=== PATIENT | male | born 1970 | race Caucasian/White ===

== ENCOUNTER 2020-03-17 10:18 | Emergency (ER) | payer BC, OTHER ==
[~2020-03-17] VITALS: Ht 177.8 cm; Wt 131.0 kg
--- NOTE | 2020-03-17 10:56 | ED General ---
General Chief Complaint: Dizziness/Syncope Stated Complaint: DIZZINESS Nursing Triage Note: Patient presents to the ED with c/o sudden onset of dizziness, nausea, diaphoresis. He reports that he was lying in bed and when he went to stand up he became very hot and sweaty and felt as though he was going to throw up. He states that this feeling lasted approximately 1 hour. Upon arrival patient denies dizziness and states his nausea and flushed feeling have improved. Nursing Sepsis Screen: No Definite Risk History of Present Illness Date Seen by Provider: Mar 17, 2020 Time Seen by Provider: 10:45 Initial Comments Patient is a 49-year-old male who presents to the emergency department today with a chief complaint of feeling very dizzy and off balance. 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 Patient states that he got into a lukewarm shower to try and cool off, when he came out of the shower he was still continuing to be diaphoretic. Patient states it continues to happen in waves. The flushed feeling and nauseous feeling have subsided somewhat. He continues to have waves of dizziness as he sits on the stretcher. He denies any complaints of chest pain, shortness of breath, abdominal pain. He denies any problems with bowel or bladder. He states yesterday while he was working he had a little pain to the right lower rib cage but that has also subsided. All other review of systems reviewed and negative except as stated. Timing/Duration: 1-3 Hours Severity: Severe Modifying Factors: improves with Rest Associated Systoms: Diaphoresis, Nausea/Vomiting Allergies and Home Medications Allergies Coded Allergies: No Known Drug Allergies (Unverified , 03/17/20) Home Medications Meclizine HCl 25 Mg Tablet, 25 MG PO Q6H PRN for dizziness Prescribed by: MANPREET OCASIO on 03/17/20 1148 Ondansetron 4 Mg Tab.rapdis, 4 MG PO Q8H PRN for nausea Prescribed by: MANPREET OCASIO on 03/17/20 1148 Patient Home Medication List Home Medication List Reviewed: Yes Review of Systems Review of Systems Constitutional: see HPI, diaphoresis EENTM: no symptoms reported Respiratory: no symptoms reported Gastrointestinal: nausea Genitourinary: no symptoms reported Musculoskeletal: no symptoms reported Skin: no symptoms reported Psychiatric/Neurological: Denies Headache, Denies Numbness, Denies Paresthesia, Denies Tingling, Denies Tremors, Denies Weakness All Other Systems Reviewed Negative Unless Noted: Yes Past Posoduu-Wtnvth-Hqivih Hx Patient Social History Alcohol Use: Rarely Uses Recreational Drug Use: No Smoking Status: Never a Smoker 2nd Hand Smoke Exposure: No Recent Foreign Travel: No Contact w/Someone Who Travel: No Recent Infectious Disease Expo: No Recent Hopitalizations: No Physical Abuse: No Sexual Abuse: No Mistreated: No Fear: No Seasonal Allergies Seasonal Allergies: No Past Medical History Surgeries: Yes (Right 4th finger replantation) Respiratory: Yes Pneumonia Cardiac: Yes Hypertension Neurological: No Genitourinary: No Gastrointestinal: No Musculoskeletal: No Endocrine: No HEENT: No Cancer: No Psychosocial: No Integumentary: No Blood Disorders: No Physical Exam Vital Signs Vital Signs - First Documented 03/17/20 10:18 Temp 36.8 Pulse 63 Resp 22 B/P (MAP) 180/100 (126) Pulse Ox 96 O2 Delivery Room Air Capillary Refill : Less Than 3 Seconds Height, Weight, BMI Height: '" Weight: lbs. oz. kg; 41.00 BMI Method: General Appearance: No Apparent Distress, WD/WN Eyes: Bilateral Eye Normal Inspection, Bilateral Eye PERRL, Bilateral Eye EOMI HEENT: PERRL/EOMI, TMs Normal (Right TM partially occluded by cerumen), Normal ENT Inspection Neck: Full Range of Motion Respiratory: Lungs Clear, Normal Breath Sounds, No Accessory Muscle Use, No Respiratory Distress Cardiovascular: Regular Rate, Rhythm Gastrointestinal: Normal Bowel Sounds Back: Normal Inspection Extremity: Normal Inspection, Normal Range of Motion, Non Tender Neurologic/Psychiatric: Alert, Oriented x3, No Motor/Sensory Deficits, Normal 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/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, 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 Norm as Tested; No Abnormal Cerebellar Tests, No Disoriented, No EOM Palsy, No Facial Droop, No Motor Weakness, No Sensory Deficit Skin: Normal Color, Warm/Dry Progress/Results/Core Measures Suspected Sepsis Recent Fever Within 48 Hours: No Infection Criteria Present: None New/Unexplained Altered Menta: No Sepsis Screen: No Definite Risk SIRS Temperature: Pulse: 63 Respiratory Rate: 22 Laboratory Tests 12/4/20 10:28: White Blood Count 6.6 Blood Pressure 180 /100 Mean: 126 Laboratory Tests 03/17/20 10:28: Creatinine 1.00, Platelet Count 316 Results/Orders Lab Results Laboratory Tests Test 03/17/20 10:28 Range/Units White Blood Count 6.6 4.3-11.0 10^3/uL Red Blood Count 5.44 4.35-5.85 10^6/uL Hemoglobin 15.3 13.3-17.7 G/DL Hematocrit 46 40-54 % Mean Corpuscular Volume 84 80-99 FL Mean Corpuscular Hemoglobin 28 25-34 PG Mean Corpuscular Hemoglobin Concent 33 32-36 G/DL Red Cell Distribution Width 13.3 10.0-14.5 % Platelet Count 316 130-400 10^3/uL Mean Platelet Volume 11.1 H 7.4-10.4 FL Immature Granulocyte % (Auto) 1 % Neutrophils (%) (Auto) 53 42-75 % Lymphocytes (%) (Auto) 37 12-44 % Monocytes (%) (Auto) 6 0-12 % Eosinophils (%) (Auto) 2 0-10 % Basophils (%) (Auto) 1 0-10 % Neutrophils # (Auto) 3.5 1.8-7.8 X 10^3 Lymphocytes # (Auto) 2.4 1.0-4.0 X 10^3 Monocytes # (Auto) 0.4 0.0-1.0 X 10^3 Eosinophils # (Auto) 0.2 0.0-0.3 10^3/uL Basophils # (Auto) 0.1 0.0-0.1 10^3/uL Immature Granulocyte # (Auto) 0.0 0.0-0.1 10^3/uL Sodium Level 139 135-145 MMOL/L Potassium Level 3.8 3.6-5.0 MMOL/L Chloride Level 105 98-107 MMOL/L Carbon Dioxide Level 26 21-32 MMOL/L Anion Gap 8 5-14 MMOL/L Blood Urea Nitrogen 19 H 7-18 MG/DL Creatinine 1.00 0.60-1.30 MG/DL Estimat Glomerular Filtration Rate > 60 BUN/Creatinine Ratio 19 Glucose Level 157 H 70-105 MG/DL Calcium Level 8.9 8.5-10.1 MG/DL Troponin I < 0.30 <0.30 NG/ML My Orders Orders - MANPREET OCASIO MD Ekg Tracing (03/17/20 10:51) Cbc With Automated Diff (03/17/20 10:51) Troponin I Fs (03/17/20 10:51) Basic Metabolic Panel (03/17/20 10:51) Meclizine Tablet (Antivert Tablet) (03/17/20 11:15) Ondansetron Injection (Zofran Injectio (03/17/20 11:15) Medications Given in ED Current Medications Medications Dose Ordered Sig/Matthew Route Start Time Stop Time Status Last Admin Dose Admin Meclizine HCl 25 mg ONCE ONCE PO 03/17/20 11:15 03/17/20 11:16 DC 03/17/20 11:11 25 MG Ondansetron HCl 4 mg ONCE ONCE IVP 03/17/20 11:15 03/17/20 11:16 DC 03/17/20 11:11 4 MG Vital Signs/I&O 03/17/20 10:18 Temp 36.8 Pulse 63 Resp 22 B/P (MAP) 180/100 (126) Pulse Ox 96 O2 Delivery Room Air Capillary Refill : Less Than 3 Seconds Blood Pressure Mean: 126 Progress Note : Time: 11:40 Progress Note 49-year-old male presents to the emergency department with a chief complaint of dizziness and nausea and diaphoresis. Evaluation today includes a physical exam, CBC, basic metabolic panel. Patient's labs have been reviewed and are within normal limits. He has no electrolyte disturbances or other abnormalities present in the laboratory studies. Patient clinically has vestibular neuronitis. This should resolve over the course of a few days. Patient will be sent home with a prescription for Zofran and meclizine. Instructions to use care and caution when changing positions. At this point I do not believe his symptoms are severe enough to warrant a prednisone taper. Patient will be discharged home. He is comfortable with plan of care, all questions are sought and answered, he is stable for discharge. 1151 Patient is feeling better at the time of discharge Departure Impression Primary Impression: Vestibular neuritis Qualified Codes: H81.20 - Vestibular neuronitis, unspecified ear Disposition: HOME, SELF-CARE Condition: Stable Departure-Patient Inst. Decision time for Depature: 11:42 Patient Instructions: Vertigo (a Type of Dizziness) (DC), Heat Exhaustion and Heat Stroke (DC), Orthostatic Hypotension (DC) Add. Discharge Instructions: Drink plenty of fluids to stay well-hydrated. Take the meclizine as prescribed every 6 hours as needed for dizziness. I have also given your prescription for Zofran to use for nausea. You can take this every 8 hours. Please call your primary care physician for a follow-up appointment next week. Return to the emergency department for any worsening symptoms, severe headache or any other emergent concerning symptoms. All discharge instructions reviewed with patient and/or family. Voiced understanding. Scripts Ondansetron (Ondansetron Odt) 4 Mg Tab.rapdis 4 MG PO Q8H PRN for nausea, #20 TAB Prov: MANPREET OCASIO MD 03/17/20 Meclizine HCl (Meclizine HCl) 25 Mg Tablet 25 MG PO Q6H PRN for dizziness, #30 TAB Prov: MANPREET OCASIO MD 03/17/20 MANPREET OCASIO MD Mar 17, 2020 10:56
[2020-03-17 11:02] LABS: HEMATOCRIT 46 % (40-54); HEMOGLOBIN 15.3 G/DL (13.3-17.7); MEAN CORPUSCULAR HEMOGLOBIN 28 PG (25-34); MEAN CORPUSCULAR HGB CONC 33 G/DL (32-36); MEAN CORPUSCULAR VOLUME 84 FL (80-99); MEAN PLATELET VOLUME 11.1 FL (7.4-10.4); PLATELET COUNT 316 10^3/uL (130-400); WHITE BLOOD COUNT 6.6 10^3/uL (4.3-11.0)
[2020-03-17 11:03] LABS: BASOPHILS # (AUTO) 0.1 10^3/uL (0.0-0.1); BASOPHILS % (AUTO) 1 % (0-10); EOSINOPHILS # (AUTO) 0.2 10^3/uL (0.0-0.3); EOSINOPHILS % (AUTO) 2 % (0-10); LYMPHOCYTES # (AUTO) 2.4 X 10^3 (1.0-4.0); LYMPHOCYTES % (AUTO) 37 % (12-44); MONOCYTES # (AUTO) 0.4 X 10^3 (0.0-1.0); MONOCYTES % (AUTO) 6 % (0-12); NEUTROPHILS # (AUTO) 3.5 X 10^3 (1.8-7.8); NEUTROPHILS % (AUTO) 53 % (42-75)
[2020-03-17] MEDS ORDERED: ONDANSETRON 4 MG/2 ML (SDV) Z0FRAN IVP ONE (11:15)
[2020-03-17] MEDS ORDERED: MECLIZINE 25 MG (ANTIVERT) TAB PO ONE (11:15)
[2020-03-17 11:32] LABS: BUN/CREATININE RATIO 19; CALCIUM 8.9 MG/DL (8.5-10.1); CARBON DIOXIDE 26 MMOL/L (21-32); CHLORIDE 105 MMOL/L (98-107); GFR ESTIMATED > 60; GLUCOSE 157 MG/DL (70-105); POTASSIUM 3.8 MMOL/L (3.6-5.0); SODIUM 139 MMOL/L (135-145)
[2020-03-17] MEDS ORDERED: ONDA4TAB11 PO (11:48)
[2020-03-17] MEDS ORDERED: MECL-149 PO (11:48)
[2020-03-17 12:02] VITALS: BP 175/105
== END 2020-03-17 12:01 | disposition home or self-care (01) ==
LOC: ER FS 10:20
DX: H81.21 Vestibular neuronitis, right ear (principal)
CPT/HCPCS: 36415; 80048; 84484; 85025